=== PATIENT | male | born 1975 | race Caucasian/White ===

== ENCOUNTER 2017-08-23 15:33 | Emergency (ER) | payer OTHER | END 2017-08-23 15:37 | disposition left against medical advice (07) | LOC: CED 15:33 | DX: Z53.21 Procedure and treatment not carried out due to patient leaving prior to being seen by health care provider (principal) ==

== ENCOUNTER 2017-08-23 16:11 | Emergency (ER) | payer OTHER ==
--- NOTE | 2017-08-23 17:40 | EDPHY ---
General Time Seen by Provider: 08/23/17 17:25 Narrative: CHIEF COMPLAINT: Table saw injury HISTORY OF PRESENT ILLNESS: Patient complains of table saw injury to the left index finger. He was using his table saw around 2 hr ago when "I hit a knot in the wood." He reports injury to the left index finger. This is over the distal phalanx. It was minimally painful for the 1st 3045 min. It is not rated at an 8/10. Worse with any kind of movement palpation. Bleeding has stopped with pressure. No difficulty straightening the finger. No foreign body visualized. Does have trauma to the nail. Tetanus is up-to-date less than 2 years ago. He has no trauma elsewhere. No other associated complaints or modifying factors. NPO of solids as of 11:00 a.m.. Tdap up to date, less than 2 years ago. Patient is right-hand dominant. TIME OF INJURY: Less than 2 hr prior to arrival TETANUS STATUS: Less than 2 years ago MEDICAL/SURGICAL/SOCIAL HISTORY: No ongoing medical diagnoses. REVIEW OF SYSTEMS: Ten systems reviewed and are negative unless otherwise noted in the HPI EXAMINATION General Appearance: Alert, no distress Head: normocephalic, atraumatic Cardiovascular: Radial pulses symmetric 2+. Brisk cap refill on all fingers of the left hand. Neurological: A&O, sensory symmetric, interossei strength symmetric. Skin: Warm and dry, no rash. There is a complex, jagged laceration with laceration of the wound borders of the left index finger. This started on the radial side at the lateral nail margin, thus wraps obliquely to the pad of the left index finger. There is injury to the nail Extremities: Tenderness of left index finger over the laceration. There is no tenderness otherwise. Range of motion is symmetric otherwise. He retains full flexion extension of the left index finger. DIFFERENTIAL DIAGNOSES: Including but not limited to laceration, complex laceration, laceration with open fracture, laceration foreign body, laceration with tendon injury MDM: 5:30 p.m. Open fracture of the left index finger distal phalanx. This is an oblique laceration that does wrap around to the ulnar side with involvement of the nail and nail bed. No pulsatile bleeding. Digital block as taking his pain to a 0. I read the x-ray I will discuss with the on-call hand surgeon. We are currently irrigating the wound. I have ordered IV Ancef. 5:50 p.m. Case discussed with on-call hand surgeon Dr. Penny. He has reviewed the x-ray. He recommends irrigation, antibiotic treatment here. He recommends tacking the skin together as best as can be obtained. He would like the patient placed in a splint and he will see him on Friday in his office. No further recommendations. We have adhere to these recommendations. 6:30 p.m. I have repaired the laceration as best as could be closed given the severe swelling. Upon re-evaluation after clean, there is a 2nd laceration that I did not see a 1st. This is over the dorsum of the distal phalanx of the left index finger. This was superficial, v-shaped and was closed with 2 simple interrupted sutures. 7:00 p.m. Patient has been placed in an nonadherent dressing, tube gauze and Alumafoam splint to the affected area. I re-evaluated him postprocedure. We discussed antibiotic therapy, pain medication as needed. We discussed ice and elevation. We discussed avoiding any re-injury to the wound, any submerging under water. He has instructions to call the hand surgeon on Friday morning for definitive care. He is comfortable this plan and discharged home stable condition. PROCEDURE: Laceration repair, 1. Consent: Verbal Location: Left index finger Length of repair: 2.5 cm Complexity: Complex Layer involvement: Single Anesthesia: Digital block Irrigation: Extensive Debridement: Minimal Procedure description: Following good anesthesia, the wound was copiously irrigated. Wound bed was explored with a sterile glove, and there is no foreign body noted. Minimal excisional debridement performed. Wound borders were approximated loosely, as best as could be with moderate swelling. Tolerated well without complication. Suture/Staple material: 5-0 Prolene, 5 simple ruptured sutures Wound care: Routine as discussed Suture/Staple removal: To be determined by hand surgeon PROCEDURE: Laceration repair, 2. Consent: Verbal Location: left index finger, distal phalanx, volar Length of repair: 1 cm, v-shaped Complexity: Simple Layer involvement: Anesthesia: Digital block Irrigation: Extensive Debridement: None Procedure description: Following good anesthesia, the wound was copiously irrigated. Wound bed was explored with a sterile glove, and there is no foreign body noted. Wound borders were approximated well with good hemostasis. Tolerated well without complication. Suture/Staple material: 5-0 Prolene, 2 simple interrupted sutures Wound care: Routine as discussed Suture/Staple removal: 7-10 Days PROCEDURE: Digital Block Indication: Finger laceration Consent: Verbal Location: left index finger Anesthesia: Lidocaine 1% plain, 0.25% Marcaine plain, 5mL Description: Base of the finger was prepped. The above was infused without difficulty. Tolerated well. Good anesthesia. Complications: None SUPERVISION: This patient was independently evaluated without direct involvement of or examination by the attending physician. Orthopedic hand surgeon consult by telephone. Dr. Penny ED Precautions: Worsening pain. Erythema, edema, cyanosis, pallor, paresthesia or anesthesia. - History Smoking Status: Never smoked - Objective Vital Signs: Initial Vital Signs Temperature (C) 98.1 F 08/23/17 16:21 Heart Rate 105 H 08/23/17 16:21 Respiratory Rate 16 08/23/17 16:21 Blood Pressure 140/98 H 08/23/17 16:21 O2 Sat (%) 98 08/23/17 16:21 O2 Delivery Mode Room Air Allergies/Adverse Reactions: gluten [Gluten] Allergy (Verified 08/23/17 16:21) Home Medications: Medication Instructions Recorded Cephalexin [Keflex (*)] 500 mg PO QID #40 cap 08/23/17 oxyCODONE HCL/ACETAMINOPHEN 1 each PO Q4-6PRN PRN #7 tablet 08/23/17 [Percocet 5-325 mg Tablet] Medications Given: Discontinued Medications Cephalexin (Keflex 500 Mg Prepack#4) 1 btl TAKEHOME EDNOW ONE PRN Reason: Protocol Stop: 08/23/17 18:33 Last Admin: 08/23/17 18:38 Dose: 1 btl Cefazolin Sodium/Dextrose (Ancef 2 Gm (Premix)) 100 mls @ 200 mls/hr IV EDNOW ONE PRN Reason: Protocol Stop: 08/23/17 18:11 Last Admin: 08/23/17 17:54 Dose: 100 mls Oxycodone/Acetaminophen (Percocet 5/325mg Prepack#4) 1 btl TAKEHOME EDNOW ONE Stop: 08/23/17 18:33 Last Admin: 08/23/17 18:38 Dose: 1 btl ED Course With Dr:: Zohaib Discussion: open fracture treatment and follow up Departure - Departure Disposition: Home, Routine, Self-Care Clinical Impression: Open fracture of distal phalanx of left index finger Qualifiers: Encounter type: initial encounter Fracture alignment: displaced Qualified Code( s): S62.631B - Displaced fracture of distal phalanx of left index finger, initial encounter for open fracture Laceration of left index finger with damage to nail Qualifiers: Encounter type: initial encounter Foreign body presence: without foreign body Qualified Code(s): S61.311A - Laceration without foreign body of left index finger with damage to nail, initial encounter Laceration of index finger without complication Qualifiers: Encounter type: initial encounter Qualified Code(s): S61.218A - Laceration without foreign body of other finger without damage to nail, initial encounter Condition: Good Instructions: Care For Your Stitches (ED), Laceration (ED), Finger Fracture (ED ) Additional Instructions: 1. Keflex as provided, 1 pill by mouth 4 times daily while awake 2. Percocet pain medication as needed. 3. Ice and elevate the extremity often 4. You will need to contact the hand surgeon on Friday morning. They informed me that they would like to see you on Friday or Friday at the latest 5. ED precautions as discussed Referrals: Nikki Penny MD [Medical Doctor] - As per Instructions Prescriptions: Cephalexin [Keflex (*)] 500 mg PO QID #40 cap oxyCODONE HCL/ACETAMINOPHEN [Percocet 5-325 mg Tablet] 1 each PO Q4-6PRN PRN #7 tablet PRN Reason: Pain, Breakthrough
[2017-08-23] MEDS ORDERED: ceFAZolin 2 GM/DEXTROSE 100 ML IV ONE (17:42)
[2017-08-23] MEDS ORDERED: CEFAZOLIN 1 GM/DEXTROSE/50 ML BAG IV ONE (17:48)
[2017-08-23] MEDS ORDERED: CEPHALEXIN 500MG PREPACK#4 BTL TAKEHOME ONE (18:32)
[2017-08-23] MEDS ORDERED: OXYCODONE/APAP 5/325MG PREPACK#4 BTL TAKEHOME ONE (18:32)
[2017-08-23 18:47] VITALS: BP 159/89
== END 2017-08-23 19:01 | disposition home or self-care (01) ==
PROC: 0HQGXZZ Repair Left Hand Skin, External Approach (ICD-10-PCS; principal; 2017-08-23)
DX: S62.631B Displaced fracture of distal phalanx of left index finger, initial encounter for open fracture (principal); S61.311A Laceration without foreign body of left index finger with damage to nail, initial encounter; W31.1XXA Contact with metalworking machines, initial encounter
CPT/HCPCS: 96365; J0690